=== PATIENT | female | born 1955 | race Hispanic/Latino ===

== ENCOUNTER 2023-03-31 06:51 | Day surgery (SDC) | payer OTHER ==
[~2023-03-31] VITALS: Ht 162.6 cm; Wt 75.6 kg
[2023-03-31] VITALS (10 sets, daily range): BP systolic 93–128; BP diastolic 52–78; PULSE 55–68; RESP 14–18
[~2023-03-31 06:51] MED LIST: CETI10TA57 PO; CHOL500045 PO; CYAN-106 PO; MV M PO; SIMV-43 PO; VITA-348 PO
[2023-03-31] MEDS: 0.9%NACL 1000ML 1,000 ML IV ONE (08:48)
[2023-03-31] MEDS ORDERED: PROPOFOL 10 MG/ML 20ML VIAL IV ONE (09:31)
== END 2023-03-31 11:30 | disposition home or self-care (01) ==
LOC: ENDO 06:51 → DAH 06:51 → ENDO 11:30
PROVIDERS: ATTEND Internal Medicine Gastroenterology
DX: Z12.11 Encounter for screening for malignant neoplasm of colon (principal); K57.30 Diverticulosis of large intestine without perforation or abscess without bleeding; K63.89 Other specified diseases of intestine; K21.00 Gastro-esophageal reflux disease with esophagitis, without bleeding; K44.9 Diaphragmatic hernia without obstruction or gangrene; M19.90 Unspecified osteoarthritis, unspecified site; E78.5 Hyperlipidemia, unspecified; Z90.710 Acquired absence of both cervix and uterus; Z98.890 Other specified postprocedural states; Z98.49 Cataract extraction status, unspecified eye; Z80.0 Family history of malignant neoplasm of digestive organs; Z72.89 Other problems related to lifestyle
CPT/HCPCS: J7030 ×2; J2704; A4620; G0121; A4223; A7002; A4222; A4221; A4663; A4606; G0105; J3490